=== PATIENT | female | born 1980 | race African-American/Black ===

== ENCOUNTER 2017-12-20 18:57 | Emergency (ER) | payer OTHER, BC ==
[2017-12-20 19:31] VITALS: BMI 54.8
[2017-12-20 19:32] VITALS: RESP 18
[2017-12-20] MEDS ORDERED: Sodium Chloride 0.9% 2,000 ML IV STA (19:54)
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
[2017-12-20 20:54] LABS: BASO # 0.02 K/mm3 (0.0-2.0); BASO % 0.1 % (0.0-3.0); EOS # 0.1 (0.0-0.7); EOS % 0.8 % (1.5-5.0); GRAN # 13.19 (1.4-6.5); GRAN % 76.7 % (50.0-68.0); HEMOGLOBIN 13.2 g/dL (12.0-16.0); LYMPH % 17.3 % (22.0-35.0); MEAN CELL VOLUME 85.9 fl (80.0-105.0); MEAN CORPUSCULAR HEMOGLOBIN 29.1 pg (25.0-35.0); MEAN CORPUSCULAR HGB CONC 33.9 g/dl (31.0-37.0); MEAN PLATELET VOLUME 10.1 fl (7.0-11.0); MONO # 0.9 (0.1-0.6); MONO % 5.1 % (1.0-6.0); RBC 4.53 10^6/uL (3.5-6.1); RED CELL DISTRIBUTION WIDTH 13.3 % (11.5-14.5); WHITE BLOOD COUNT 17.2 10^3/ul (4.5-11.0)
[2017-12-20 21:00] LABS: PROTHROMBIN TIME 11.4 SECONDS (9.4-12.5)
[2017-12-20 21:06] LABS: ALB/GLOB RATIO 1.2 (1.1-1.8); ALBUMIN 4.1 g/dL (3.0-4.8); ALT/SGPT 36 U/L (7-56); AST/SGOT 28 U/L (14-36); BLOOD UREA NITROGEN 20 mg/dL (7-21); CALCIUM 9.6 mg/dL (8.4-10.5); GFR AFRICAN-AMERICAN > 60; GFR NON-AFRICAN AMERICAN > 60; LIPASE 55 U/L (23-300)
[2017-12-21 02:13] VITALS: BP 145/89; PULSE 85; TEMP 98.7; O2SAT 100
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
== END 2017-12-20 23:45 | disposition home or self-care (01) ==
LOC: ED 18:57
DX: Z04.1 Encounter for examination and observation following transport accident (principal); V03.10XA Pedestrian on foot injured in collision with car, pick-up truck or van in traffic accident, initial encounter; Y92.410 Unspecified street and highway as the place of occurrence of the external cause
CPT/HCPCS: 70450; 71250; 72125; 73080; 73502; 73552; 74176; 80053; 83690; 83735; 84100; 84702; 85025; 85610; 86850; 86900; 96374; 99285; J2405